=== PATIENT | male | born 1935 | race Caucasian/White ===

== ENCOUNTER 2016-09-16 14:50 | Emergency (ER) | payer MEDICARE ==
[~2016-09-16] VITALS: Ht 180.3 cm; Wt 65.0 kg
[~2016-09-16 14:50] MED LIST: CHOL5000 PO; CYAN100063 GT; MULT-115 PO; TEST5GEL TD; TEST75GE2
[2016-09-16] MEDS ORDERED: OMNIPAQUE 350 MG/ML, 50 ML BOTTLE IV ONE (22:25)
[2016-09-16 22:53] VITALS: BP 123/71
== END 2016-09-16 22:55 | disposition home or self-care (01) ==
LOC: ED 22:28
DX: Z43.1 Encounter for attention to gastrostomy (principal); Z87.891 Personal history of nicotine dependence
CPT/HCPCS: 43760; 74000; 74020; 99284; Q9967

== ENCOUNTER 2017-04-13 12:33 | Emergency (ER) | payer MEDICARE, BC ==
[~2017-04-13] VITALS: Ht 180.3 cm; Wt 63.3 kg
[2017-04-13 12:41] VITALS: BP 116/60
[2017-04-13] MEDS ORDERED: OMNIPAQUE 350 MG/ML, 50 ML BOTTLE ONE (17:34)
== END 2017-04-13 18:47 | disposition home or self-care (01) ==
LOC: ED 17:42
DX: Z46.59 Encounter for fitting and adjustment of other gastrointestinal appliance and device (principal)
CPT/HCPCS: 43760; 74000; 99284; Q9967

== ENCOUNTER 2018-09-27 11:58 | Emergency (ER) | payer MEDICARE ==
[~2018-09-27] VITALS: Ht 180.3 cm; Wt 63.6 kg
--- NOTE | 2018-09-27 14:03 | NUR ---
FROM LOBBY TO ROOM AT THIS TIME
--- NOTE | 2018-09-27 14:13 | NUR ---
82 Y/O MALE PRESENTS TO ED WITH C/O "I INADVERTANTLY PULLED MY G TUBE OUT. I WAS DOING SOMETHING AND AND GOT IT CAUGHT ON SOMETHING. I'VE HAD IT SINCE 2011." PT PLACED ON CONT PULSE OX,NIBP. NO C/O N/V/D, TRAUMA, SYNCOPE, CP, SOB.
[2018-09-27 16:00] VITALS: BP 144/72
--- NOTE | 2018-09-27 16:34 | NUR ---
LATE ENTRY FOR 1530 PT RESTING ON [employer] READING BOOK. NO ACUTE DISTRESS NOTED. NO NEEDS REQUESTED AT THIS TIME.
--- NOTE | 2018-09-27 16:34 | NUR ---
PEG TUBE REPLACED BY FOSTER HANKS. SUCCESSFUL. NO ACUTE DISTRESS NOTED.
--- NOTE | 2018-09-27 16:41 | NUR ---
Patient/Caregiver given discharge instructions and they have confirmed that they understand the instructions. Patient ambulatory with steady gait. PT LEFT WITH ALL PERSONAL BELONGINGS.
== END 2018-09-27 16:42 | disposition home or self-care (01) ==
LOC: ED 15:06
DX: K94.23 Gastrostomy malfunction (principal); Z85.818 Personal history of malignant neoplasm of other sites of lip, oral cavity, and pharynx
CPT/HCPCS: 36415; 43762; 80074; 87806; 99284; G0475